=== PATIENT | male | born 1950 | race Caucasian/White ===

== ENCOUNTER 2024-07-16 06:05 | Day surgery (SDC) | payer OTHER ==
[2024-07-10 13:42] VITALS: BMI 30.6
[2024-07-16] MEDS: CIPROFLOXACIN 0.3% EYE DROPS 5 ML BOTTLE ONE (07:00)
[2024-07-16] MEDS: CYCLOPENTOLATE 2% OPHTH SOLN 2 ML BOTTLE ONE (07:00)
[2024-07-16] MEDS: TROPICAMIDE 1% OPHTH SOLN 15 ML BOTTLE ONE (07:00)
[2024-07-16] MEDS: PHENYLEPHRINE 2.5% OPTHALMIC DROP 2ML BOTTLE ONE (07:00)
[2024-07-16] MEDS ORDERED: EPINEPHrine/PF 1 MG/1 ML (1:1,000) AMPULE ONE (07:09)
[2024-07-16] MEDS ORDERED: TETRACAINE 0.5% OPHTH SOLN 2 ML BOTTLE ONE (07:10)
[2024-07-16] MEDS ORDERED: LIDOCAINE 1% P/F 10 MG/ML VIAL ONE (07:10)
[2024-07-16] MEDS ORDERED: BSS (NA/CA/MG/K) BALANCED SALT SOLUTION OPHTH SOLN 15 ML BOTTLE ONE (07:10)
[2024-07-16] MEDS ORDERED: NEO/POLYMYX B SULF/DEXAMETH OPHTHALMIC 5ML BOTTLE ONE (07:11)
[2024-07-16] MEDS ORDERED: CARBACHOL 0.01% INTRA-OCULAR 1.5 ML VIAL ONE (07:11)
[2024-07-16] MEDS ORDERED: MIDAZOLAM HCL 2 MG/2 ML SINGLE DOSE VIAL ONE (07:38)
[2024-07-16] MEDS ORDERED: ONDANSETRON 4 MG/2 ML VIAL ONE (07:38)
[2024-07-16 08:53] VITALS: PULSE 74; RESP 18; TEMP 97.1
[2024-07-16 09:17] VITALS: BP 118/71
== END 2024-07-16 09:27 | disposition home or self-care (01) ==
LOC: FASU 06:05
PROVIDERS: ATTEND Ophthalmology
PROC: 08RK3JZ Replacement of Left Lens with Synthetic Substitute, Percutaneous Approach (ICD-10-PCS; principal; 2024-07-16 08:27)
DX: H26.8 Other specified cataract (principal)
CPT/HCPCS: 66984; V2632; 82962